=== PATIENT | male | born 1960 | race Caucasian/White ===

== ENCOUNTER → 2022-07-18 | Day surgery (SDC) | payer BC ==
[~2022-07-18] MED LIST: BUPIVACAINE HCL 0.5% INJ 30 ML VIAL INJ ONE; CELEBREX200 MG PO; IOPAMIDOL 200 MG/ML 20 ML VIAL IT ONE; KETOROLAC TROMETHAMINE 30 MG/ML VIAL ONE; LACTATED RINGER'S 1,000 ML ONE; LIDOCAINE HCL 1% LOCAL INJ 20 ML VIAL ONE; LIDOCAINE HCL 2% LOCAL INJ 5 ML SDV VIAL INJ ONE; MULTIVITAMIN1 EACH PO; POVIDONE IODINE 0.05% 0.05 % ML PO ONE; PROPOFOL IV EMULSION 10 MG/ML 20 ML VIAL ONE; TRIAMCINOLONE ACET 40 MG/ML VIAL ONE; TYLENOL325 MG PO
[2022-07-18 12:42] VITALS: TEMP 97.3
[2022-07-18 13:07] VITALS: BP 111/75; PULSE 44; RESP 18; O2SAT 100
== END | disposition home or self-care (01) ==
LOC: OR 10:53
PROVIDERS: ATTEND Specialist
DX: T84.9XXA Unspecified complication of internal orthopedic prosthetic device, implant and graft, initial encounter (principal); Y83.8 Other surgical procedures as the cause of abnormal reaction of the patient, or of later complication, without mention of misadventure at the time of the procedure
CPT/HCPCS: 20610; 77002; 87071; 87075; 87205; 93005; J1885; J2001 ×2; J2704; J3301; J7121; Q9967